=== PATIENT | male | born 1955 | race Caucasian/White ===

== ENCOUNTER → 2020-11-15 | Outpatient (CLI) | payer OTHER ==
[~2020-11-15] MED LIST: ALBU18HF INH; IBUP200C8 PO; L.AC1CAP6 PO; MULT-658 PO; OMEG1CAP34 PO; TAMS-11 PO; TIOT4MIS3 INH; magnesium PO; turmeric PO; vitamin d PO; zinc PO
[2020-11-15 09:45] LABS: MICROSCOPIC NOT IND
[2020-11-15 09:47] LABS: BASOPHILS % (AUTO) 0 % (0-1); EOSINOPHILS % (AUTO) 1 % (1-7); LYMPHOCYTES % (AUTO) 37 % (22-44); MONOCYTES % (AUTO) 12 % (2-9); NEUTROPHILS % (AUTO) 50 % (42-75); PLATELET COUNT 214 x10^3/uL (130-400); RED BLOOD COUNT 5.58 x10^6/uL (4.38-5.82); RED CELL DISTRIBUTION WIDTH 14.5 % (9.4-14.8)
[2020-11-15 09:52] LABS: ALANINE AMINOTRANSFERASE 23 U/L (12-78); ANION GAP 5 mmol/L (5-15); CALCIUM 9.4 mg/dL (8.5-10.1); CHLORIDE 106 mmol/L (98-107); CREATININE 0.69 mg/dL (0.7-1.3); INTERNATIONAL NORMALIZED RATIO 1.02 (0.93-1.1); PROTHROMBIN TIME 10.9 Seconds (9.6-11.5)
[2020-11-15 09:55] LABS: ALKALINE PHOSPHATASE 59 U/L (45-117); BILIRUBIN,TOTAL 0.4 mg/dL (0.2-1.0); TOTAL PROTEIN 7.4 g/dL (6.4-8.2)
== END | disposition home or self-care (01) ==
LOC: STAR 08:02
PROVIDERS: ATTEND Urology
DX: Z01.818 Encounter for other preprocedural examination (principal); R19.09 Other intra-abdominal and pelvic swelling, mass and lump; R94.31 Abnormal electrocardiogram [ECG] [EKG]
CPT/HCPCS: 36415; 71046; 80053; 81003; 85025; 85610; 87086; 93005

== ENCOUNTER 2020-11-24 08:04 | Inpatient (IN) | payer MEDICARE, OTHER ==
[~2020-11-24] VITALS: Ht 182.9 cm; Wt 74.0 kg
[2020-11-24] MEDS ORDERED: CHLORHEXIDINE 15 ML UDC PO ONE (09:30)
[2020-11-24] MEDS ORDERED: LACTATED RINGERS 1,000 ML IV SCH (09:30)
[2020-11-24 09:33] VITALS: BP 125/90
[2020-11-24] MEDS ORDERED: CHLORHEXIDINE 15 ML UDC ONE (09:39)
[2020-11-24] MEDS ORDERED: EPINEPHRINE 1 MG/ML, 1ML ONE (12:31)
[2020-11-24] MEDS ORDERED: BUPIVACAINE/PF 0.5% ONE (12:31)
[2020-11-24] MEDS ORDERED: FENTANYL PF 250 MCG/5ML ONE ×2 (12:55→14:50)
[2020-11-24] MEDS ORDERED: ROCURONIUM 10 MG/ML,10ML ONE (12:58)
[2020-11-24] MEDS ORDERED: PROPOFOL 10 MG/ML, 20ML ONE (12:58)
[2020-11-24] MEDS ORDERED: SUCCINYLCHOLINE 20 MG/ML, 10ML ONE (12:58)
[2020-11-24] MEDS ORDERED: ONDANSETRON 2MG/ML, 2ML ONE (12:58)
[2020-11-24] MEDS ORDERED: CEFAZOLIN 1,000 MG ONE (12:58)
[2020-11-24] MEDS ORDERED: DEXAMETHASONE 4 MG/ML, 1ML ONE (12:58)
[2020-11-24] MEDS ORDERED: ONDANSETRON 2MG/ML, 2ML IVPush PRN ×2 (13:30→19:00)
[2020-11-24] MEDS ORDERED: METHOCARBAMOL 1,000 MG in DEXTROSE 5% 100 ML IV PRN (13:30)
[2020-11-24] MEDS ORDERED: PROMETHAZINE 25 MG/ML, 1ML IVPush PRN (13:30)
[2020-11-24] MEDS ORDERED: ACETAMINOPHEN 325 MG TABLET PO PRN ×3 (13:30→19:11)
[2020-11-24] MEDS ORDERED: FENTANYL PF 100 MCG/2ML IV PRN (13:30)
[2020-11-24] MEDS ORDERED: MEPERIDINE/PF 25MG/0.5ML IVPush PRN (13:30)
[2020-11-24] MEDS ORDERED: OXYcodone 5 MG/5 ML ORAL.SOL UDC PO PRN (13:30)
[2020-11-24] MEDS ORDERED: HYDROmorphone 1 MG/ML, 1ML INJ IVPush PRN (13:30)
[2020-11-24] MEDS ORDERED: LABETALOL 5MG/ML, 20ML IV PRN (13:30)
[2020-11-24] MEDS ORDERED: hydrALAzine 20 MG/ML, 1ML IV PRN (13:30)
[2020-11-24] MEDS ORDERED: SUGAMMADEX 200 MG/2 ML IVPush ONE (14:49)
[2020-11-24] MEDS ORDERED: MEPERIDINE/PF 25MG/ML,1ML ONE (15:31)
[2020-11-24] MEDS ORDERED: HYDROcodone/APAP 5/325 TABLET PO PRN (19:00)
[2020-11-24] MEDS ORDERED: morphine SULFATE 10 MG/ML, 1ML IVPush PRN (19:00)
[2020-11-24 19:28] VITALS: BP 123/75
[2020-11-24] MEDS ORDERED: ALBUTEROL SULFATE 2.5 MG/3 ML NPPB PRN (19:30)
[2020-11-24] MEDS ORDERED: CEFAZOLIN 1,000 MG IM SCH (21:00)
[2020-11-24] MEDS: SODIUM CHLORIDE 0.9% 1,000 ML IV SCH (21:14)
[2020-11-24] MEDS: CEFAZOLIN PMX 1GM/50ML 50 ML IV SCH (21:14)
[2020-11-24] MEDS: HYDROcodone/APAP 5/325 TABLET PO PRN ×2 (22:38→23:55)
[2020-11-25 00:31] VITALS: BP 138/69
[2020-11-25 03:27] VITALS: BP 105/68
[2020-11-25 05:50] LABS: BASOPHILS % (AUTO) 0 % (0-1); EOSINOPHILS % (AUTO) 1 % (1-7); LYMPHOCYTES % (AUTO) 25 % (22-44); MEAN CORPUSCULAR HEMOGLOBIN 30.8 pg (27.5-34.5); MEAN CORPUSCULAR HGB CONC 33.4 g/dL (33.2-36.2); MEAN PLATELET VOLUME 8.8 fL (7.4-10.4); MONOCYTES % (AUTO) 10 % (2-9); NEUTROPHILS % (AUTO) 64 % (42-75); PLATELET COUNT 171 x10^3/uL (130-400); RED BLOOD COUNT 4.63 x10^6/uL (4.38-5.82); RED CELL DISTRIBUTION WIDTH 14.7 % (9.4-14.8)
[2020-11-25] MEDS: CEFAZOLIN PMX 1GM/50ML 50 ML IV SCH (05:52)
[2020-11-25 06:02] LABS: ANION GAP 6 mmol/L (5-15); CALCIUM 7.9 mg/dL (8.5-10.1); CHLORIDE 107 mmol/L (98-107); CREATININE 0.54 mg/dL (0.7-1.3)
[2020-11-25] MEDS: HYDROcodone/APAP 5/325 TABLET PO PRN (06:09)
[2020-11-25 07:38] VITALS: BP 117/73
[2020-11-25] MEDS ORDERED: TIOTROPIUM BR INH SCH (09:00)
[2020-11-25] MEDS ORDERED: OLODATEROL HCL INH SCH (09:00)
[2020-11-25] MEDS ORDERED: TAMSULOSIN 0.4 MG CAP.ER.24H PO SCH (09:00)
[2020-11-25] MEDS: SODIUM CHLORIDE 0.9% 1,000 ML IV SCH (09:07)
[2020-11-25 10:37] VITALS: BP 115/76
== END 2020-11-25 11:11 | disposition home or self-care (01) | DRG 615 ==
LOC: ORIP 08:49 → EDSTATUS 12:00 → 4NE 17:23
PROVIDERS: ADMIT Urology; ATTEND Urology
PROC: 8E0W4CZ Robotic Assisted Procedure of Trunk Region, Percutaneous Endoscopic Approach (ICD-10-PCS; 2020-11-24)
PROC: 0GT24ZZ Resection of Left Adrenal Gland, Percutaneous Endoscopic Approach (ICD-10-PCS; principal; 2020-11-24 12:00)
DX: E27.9 Disorder of adrenal gland, unspecified (principal)
CPT/HCPCS: 36415; 80048; 85025; 86850; 86900; 88307; G0378; J0171; J0690; J1100; J2175; J2405; J2704; J3010; C1760; J0330; J7030; J7120